=== PATIENT | female | born 1955 ===

== ENCOUNTER → 2023-06-04 13:29 | Outpatient (REF) | payer OTHER, SELFPAY | LOC: DHCBS MAIN 13:29 | PROVIDERS: ATTENDING PHYSICIAN Internal Medicine Cardiovascular Disease; FAMILY PHYSICIAN Family Medicine | DX: I10 Essential (primary) hypertension (principal); R01.1 Cardiac murmur, unspecified | CPT/HCPCS: 93306 ==